=== PATIENT | female | born 1990 | race Hispanic/Latino ===

== ENCOUNTER 2025-01-06 22:13 | Observation (INO) ==
--- NOTE | 2025-01-06 22:22 | Emergency Department Note ---
HPI - Abdominal Pain General Chief Complaint: Abdominal Pain Stated Complaint: ABDOMINAL PAIN Time Seen by Provider: 01/06/25 22:21 Source: patient Mode of arrival: walk-in Limitations: no limitations History of Present Illness HPI narrative: 34-year-old female presents to ER with complaint of right upper quadrant abdominal pain x 2 days, patient reports that she was [facility] yesterday and diagnosed with pyelonephritis and placed on Levaquin at that time. Patient reports that she does not believe she has Edli that there is no reason for it to make her hurt in her upper abdomen and wants to be reassessed. MD elicited complaint: abdominal pain Pertinent past history: gastritis and past UTI Onset (ago): day(s) (2) Pain Consistency: constant Location: RUQ Severity: moderate Quality: stabbing, aching and sharp Radiation: R flank and back Migration to: no migration Exacerbating factors: eating, movement and other (Palpation) Relieving factors: nothing Context: other (Recent illness) Associated symptoms: nausea, vomiting, chills and other (Pain) Treatments prior to arrival: other (Antibiotics) Related Data Patient : No Patient lactating: No Previous Rx's Medication Instructions Recorded fluconazole 200 mg tablet 200 mg PO ONCE yeast #1 tab 07/20/24 (Diflucan) phenazopyridine 200 mg tablet 200 mg PO TID PRN pain 6 doses #18 07/20/24 (Pyridium) tabs Allergies Allergy/AdvReac Type Severity Reaction Status Date / Time No Known Drug Allergies Allergy Verified 01/06/25 23:10 Review of Systems 2 Status of ROS 10 or more systems reviewed and unremark able except as noted in history and below Constitutional Reports: chills; Denies: fever, change in weight, fatigue, malaise, night sweats, change in sleep pattern or other Eyes Denies: change in vision, blurry vision, blind spots, light sensitivity, eye discomfort, eye discharge, dry eyes, increased production of tears, floaters, seeing flashes or decreased night vision Ears, nose, mouth, and throat Denies: throat pain, neck pain, throat swelling, difficulty swallowing, hoarseness, mouth pain, swelling of lips/tongue, dry mouth, bad breath, ear pain, ear discharge, change in hearing, tinnitus, vertigo, nasal discharge, nasal congestion, nose bleeds or post nasal drip Cardiovascular Denies: chest pain, palpitations, edema, swelling of feet/ankles, lightheadedness, shortness of breath with exertion, shortness of breath when lying down, leg pain with exertion or bluish discoloration of hands/feet Respiratory Denies: shortness of breath, cough, wheezing, stridor, pain on inspiration, change in phlegm color, coughing up blood or chest congestion Gastrointestinal Reports: abdominal pain, nausea, vomiting and heartburn; Denies: coffee grounds in vomit, diarrhea, constipation, bloating, belching, excessive passing of gas, difficulty swallowing, feeling full early, change in bowel habits, painful bowel movements, rectal pain, rectal swelling, rectal itching, change in stool character, blood in stool, mucus in stool, white/light colored stool or fatty stool Genitourinary Denies: painful urination, urinary frequency, urinary urgency, urinary incontinence, blood in urine, difficulty voiding, decreased urine ouput, pelvic pain, painful menstruation, vaginal bleeding, vaginal discharge, irregular period, change in menstrual flow, absence of menstruation, genital lesion, genital itching, vaginal dryness, vaginal odor, pain during intercourse, difficulty conceiving or change in libido Musculoskeletal Reports: back pain; Denies: neck pain, extremity pain, extremity swelling, joint pain, limited range of motion, joint swelling, muscle cramps, muscle weakness or loss of height Integumentary/Breast Denies: rash, itching, redness, skin pain, skin tenderness, skin swelling, sores, new lesion, changing lesion, non-healing lesion, changes in skin color, jaundice, stretch duval, acne, nail changes, change in hair, breast pain, breast swelling, nipple discharge, breast mass, breast skin changes or change in breast shape Neurological Denies: headache, numbness in extremities, weakness in extremities, lack of coordination, dizziness, vertigo, confusion, behavioral changes, slurred speech, difficulty communicating thoughts, seizure-like activity or involuntary movements Psychiatric Reports: anxiety; Denies: mood swings, panic attacks, change in sleep pattern, hopelessness, loss of interest, irritability, paranoia, memory loss, difficulty concentrating, visual hallucinations, auditory hallucinations, tactile hallucinations, suicidal ideation or homicidal ideation Endocrine Denies: excessive urination, excessive thirst, fatigue, cold intolerance, excessive sweating, flushing, heat intolerance, deepening of the voice, change in body appearance or change in libido Hematologic/Lymphatic Denies: easy bruising, easy bleeding or enlarged lymph nodes Allergic/Immunologic Denies: hives, throat swelling, tongue swelling, facial swelling, wheezing, itchy eyes, seasonal allergies or food intolerance [facility] Medical History (Updated 07/20/24 @ 14:38 by René Armijo NP) HTN (hypertension) Surgical History (Updated 07/20/24 @ 12:53 by Cheri Salas RN) No pertinent past surgical history Social History Smoking status: never smoker Feel stressed/tense/nervous/anxious/difficulty sleeping: to some extent Life stressors: other (none) Life stressor details: Current medical condition Due to disability, difficulty making decisions: No Exam 2 Constitutional: normal general appearance, distress noted (moderate), abnormal body habitus (obese), no limitations and alert Vital Signs - 24 hr 01/06/25 22:30 Temperature 98.9 F Pulse Rate 70 Respiratory Rate 20 Blood Pressure 162/78 Pulse Oximetry 99 Oxygen Delivery Me thod Room Air HENMT: normocephalic, head/scalp atraumatic, hearing grossly normal bilaterally, external ears normal, EACs normal, nasal mucous membranes normal, external nose normal, oral mucous membranes normal, oropharynx normal, dentition normal and gingiva normal Eyes: PERRL, EOMs intact bilaterally, conjunctivae normal, no scleral icterus, no papilledema, normal visual zapien by confrontation, alignment normal, periorbital findings normal and no nystagmus Neck/C-Spine: visual inspection normal, trachea midline, cervical spine nontender, cervical full ROM noted and supple Lymph: no lymphadenopathy noted and no lymphedema noted Chest: inspection of chest normal, palpation of chest normal, inspection of breast(s) abnormal (deferred) and palpation of breast(s) abnormal (deferred) Respiratory: breath sounds equal bilaterally, normal respiratory effort, clear to auscultation bilaterally, no wheezes, no rales, no retractions and no use of accessory muscles Cardiovascular: normal heart rate noted, regular rhythm noted, no gallop, no rub, no murmur, no JVD, no clicks, peripheral pulses 2+ throughout and no additional abnormal heart sounds Gastrointestinal: abdomen normal to inspection, abdomen soft to palpation, tender to palpation (moderate) and (RUQ), nondistended, normoactive bowel sounds, no hepatosplenomegaly, no masses, no pulsatile mass, no ascites, no hernia and rectal exam abnormal (deferred) Patient has increased abdominal pain on palpation of the right upper quadrant and reports that the pain radiates into her back between her shoulder blades and into her right flank. 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, no movement abnormality noted, no focal motor deficit noted, no sensory deficits noted, gait normal, speech normal, coordination normal, no pronator drift noted, no fasciculations noted and GCS normal Psychiatry: Mental Status Exam documented within this Exam's Psych section mental status grossly normal, oriented x3, thought process normal, cooperative, affect normal, psychomotor activity normal and memory normal Feel stressed/tense/nervous/anxious/difficulty sleeping: to some extent Life stressors: other (none) Life stressor details: Current medical condition Due to disability, difficulty making decisions: No Skin: skin color normal, no rash, no lesions, no ecchymosis noted, no wounds, no lacerations, skin turgor normal, no jaundice, no petechiae, no mottling, nails normal and no alopecia Image: Body (4 view): 1. Pain on palpation and with movement. Course Course Hospital Course: 34-year-old female that presented to ER with complaint of right upper quadrant abdominal pain x 2 days and requesting reevaluation after being diagnosed with pyelonephritis yesterday at [facility] has been evaluated by physical exam, CBC, CMP, lipase, urinalysis, urinary , and CT of the abdomen and pelvis with contrast with results as noted in charting. Patient has been found to have cholelithiasis without cholecystitis, a large calcified gallstone, hypoalbuminemia, intractable pain, nausea and vomiting, and Mild hyponatremia. Patient will be admitted [facility] floor under observation status for pain control, nausea vomiting control, hydration, and antibiotics with potential gallbladder ultrasound in the morning and transfer for surgery if needed. Vital Signs Vital signs: Vital Signs Temperature 98.9 F 01/06/25 22:30 Pulse Rate 70 01/06/25 22:30 Respiratory Rate 20 01/06/25 22:30 Blood Pressure 162/78 01/06/25 22:30 Pulse Oximetry 99 01/06/25 22:30 Oxygen Delivery Method Room Air 01/06/25 22:30 Temperature 98.9 F 01/06/25 22:30 Pulse Rate 70 01/06/25 22:30 Respiratory Rate 20 01/06/25 22:30 Blood Pressure 162/78 01/06/25 22:30 Pulse Oximetry 99 01/06/25 22:30 Oxygen Delivery Method Room Air 01/06/25 22:30 MDM - Abdominal Pain MDM Narrative Medical decision making narrative: Medical Decision Making this patient involved physical exam, CBC, CMP, lipase, urinalysis, urine , and CT of the abdomen pelvis with contrast. Differential Diagnosis Differential diagnosis: Likely abdominal pain, acute appendicitis, constipation, diverticulitis, gastroenteritis, small bowel obstruction and other (Cholelithiasis) Medical Records Attestation: I reviewed the patient's medical records. Medical records narrative: Patient discharged from [facility] on yesterday with diagnosis of pyelonephritis with prescription for Levaquin. Lab Data Attestation: I reviewed the patient's lab results. Labs: Lab Results 01/06/25 01/06/25 Range/Units 23:02 23:20 WBC 9.7 H (4.3-9.3) K/uL RBC 4.4 (4.00-5.50) M/uL Hgb 13.1 (12.5-15.8) gm/dL Hct 38.5 (35.9-46.7) % MCV 88.4 (81.0-93.7) fl MCH 30.1 (27.6-32.2) pg MCHC 34.0 (33.1-35.3) g/dl RDW 13.9 (11.4-14.2) % Plt Count 265 (152-353) K/uL MPV 8.3 (6.9-10.8) fl Gran % 63.9 (47.8-71.3) % Lymph % (Auto) 25.2 (20.0-43.0) % Foster % (Auto) 7.6 (3.6-9.8) % Eos % (Auto) 2.7 (0.4-2.8) % Baso % (Auto) 0.6 (0.1-0.85) Lymph # (Auto) 2.5 (1.1-3.1) Foster # (Auto) 0.7 L (1.1-3.1) Eos # (Auto) 0.3 H (0.0-0.2) Baso # (Auto) 0.1 (0.0-0.1) Absolute Gran (auto) 6.2 H (2.3-6.0) Sodium 135 L (136-145) mmol/L Potassium 3.6 (3.6-5.2) mmol/L Chloride 103.0 (98-107) mmol/L Carbon Dioxide 29 (21-32) mmol/L Anion Gap 3.0 L (4-14) mEq/L BUN 18 (7-18) mg/dL Creatinine 0.9 (0.6-1.3) mg/dL Estimated GFR 85.0 (>59.9) Glucose 110 (70-110) mg/dL Calcium 8.0 L (8.5-10.1) mg/dL Total Bilirubin 0.31 (0.0-1.0) mg/dL AST 13 L (15-37) U/L ALT 23 L (30-65) U/L Alkaline Phosphatase 72 (50-136) U/L Total Protein 7.1 (6.4-8.2) g/dL Albumin 3.1 L (3.4-5.0) g/dL Lipase 64.0 (16.0-77.0) U/L Urine Color Yellow (STRAW/YELL.) Urine Appearance Clear (CLEAR) Ur Specific [place] 1.020 (1.001-1.035) Urine Protein 2+ (NEGATIVE) Urine Glucose (UA) Normal (NORMAL) Urine Ketones Negative (NEGATIVE) Urine Occult Blood Negative (NEG - TRACE) Urine Nitrite Negative (NEGATIVE) Urine Bilirubin Negative (NEGATIVE) Urine Urobilinogen Normal (NORMAL) Ur Leukocyte Esterase Negative (NEGATIVE) Urine Test Negative (Negative) Fluid pH 7.0 (5 - 9) Imaging Data Imaging ordered: CT scan - abdomen Attestation: I have reviewed the pertinent imaging results. Radiologist's impression: EXAM: CT ABDOMEN AND PELVIS WITH CONTRAST HISTORY: Right upper quadrant abdominal painRight upper quadrant abdominal pain; pt started having pain in her ruq that radiates to her back hx: htn. no sx 300 isovue, 100 ml COMPARISON: None. TECHNIQUE: Axial CT images were obtained through the abdomen and pelvis after the intravenous administration of contrast. Coronal reformatted images were included. Informed written consent was obtained prior to contrast administration. All CT scans at this facility use dose modulation, iterative reconstruction, and/or weight based dosing when appropriate to reduce radiation dose to as low as reasonably achievable. FINDINGS: LOWER THORAX: Within normal limits. ABDOMEN: LIVER: Hepatic steatosis GALLBLADDER: Large calcified gallstone SPLEEN: Within normal limits. PANCREAS: Within normal limits. KIDNEYS: Within normal limits. ADRENAL GLANDS: Within normal limits. GI TRACT: Course and caliber are within normal limits. Appendix normal. LYMPH NODES: No abnormally enlarged nodes. VESSELS: Within normal limits. PERITONEUM / RETROPERITONEUM: No free gas. PELVIS: BLADDER: Within normal limits. GENITALS: IUD in the uterus. BONES: Within normal limits. IMPRESSION: 1. Cholelithiasis with large calcified gallstone. Correlate with ultrasound. 2. Hepatic steatosis. 3. Appendix normal. THIS IS AN ELECTRONICALLY VERIFIED FINAL REPORT 01/07/2025 12:44 AM - Electronically signed by Aidee Marques MD Discharge Plan Discharge Patient Disposition: Admitted As Observation Condition: Stable Chief Complaint: Abdominal Pain Clinical Impression: Cholelithiasis, Abdominal pain, Intractable abdominal pain, Intractable nausea and vomiting, Hyponatremia, Hypoalbuminemia Prescriptions: No Action fluconazole [Diflucan] 200 mg tablet 200 mg PO ONCE Qty: 1 0RF Rx Instructions: take at the end of your antibiotic regimen phenazopyridine [Pyridium] 200 mg tablet 200 mg PO TID PRN (Reason: pain) Qty: 18 0RF Print Language: Portuguese Referrals: Miranda Modi [Primary Care Provider] - Time of Disposition: 01:00
[2025-01-06 23:08] LABS: Urine Appearance CLEAR (CLEAR); Urine Blood NEGATIVE (NEG - TRACE); Urine Color YELLOW (STRAW/YELL.); Urine Urobilinogen Normal (NORMAL)
[2025-01-06 23:25] LABS: Basophils #(Absolute) Auto 0.1 (0.0-0.1); Basophils%(Percent) Auto 0.6 (0.1-0.85); Eosinophils#(Absolute)Auto 0.3 (0.0-0.2); Eosinophils%(Percent) Auto 2.7 % (0.4-2.8); Granulocytes % - Auto 63.9 % (47.8-71.3); Granulocytes#(Absolute)- Auto 6.2 (2.3-6.0); Hematocrit 38.5 % (35.9-46.7); Mean Corpuscular Volume 88.4 fl (81.0-93.7); Monocytes #(Absolute)- Auto 0.7 (1.1-3.1); Monocytes %(Percent)- Auto 7.6 % (3.6-9.8); Platelet Count 265 K/uL (152-353); White Blood Count 9.7 K/uL (4.3-9.3)
[2025-01-06 23:46] LABS: Potassium 3.6 mmol/L (3.6-5.2)
[2025-01-07] MEDS ORDERED: KETOROLAC 30 MG/ML INJ VIAL ONE (00:13)
[2025-01-07] MEDS ORDERED: ONDANSETRON HCL/PF 4 MG/2 ML VIAL ONE (00:13)
[2025-01-07] MEDS: ONDANSETRON HCL/PF 4 MG/2 ML VIAL IVP ONE (00:15)
[2025-01-07] MEDS: KETOROLAC 30 MG/ML INJ VIAL IVP ONE (00:16)
[2025-01-07] MEDS ORDERED: bisacodyL 10 MG SUPP.RECT PR PRN (01:33)
[2025-01-07] MEDS ORDERED: ONDANSETRON HCL/PF 4 MG/2 ML VIAL IVP PRN (01:33)
[2025-01-07] MEDS ORDERED: ACETAMINOPHEN 1000 MG/100 ML 1,000 MG/100 ML IV.SOLN IV PRN (01:33)
[2025-01-07] MEDS ORDERED: KETOROLAC 30 MG/ML INJ VIAL IVP PRN (01:33)
[2025-01-07] MEDS ORDERED: MORPHINE SULFATE 4 MG/ML CARTRIDGE IV PRN (01:33)
[2025-01-07] MEDS: 0.9 % SODIUM CHLORIDE 1000 ML 1,000 ML IV SCH (03:00)
[2025-01-07] MEDS: CIPROFLOXACIN 400 MG/200ML-D5W 400 MG/200 ML PIGGYBACK IV SCH (03:00)
[2025-01-07] MEDS: METRONIDAZOLE 500 MG/100ML-NS 500 MG/100 ML PIGGYBACK IV SCH (03:11)
[2025-01-07] MEDS: PANTOPRAZOLE SODIUM 40 MG VIAL IVP SCH (08:59)
[2025-01-07] MEDS: ENOXAPARIN SODIUM 40 MG/0.4 ML SYRINGE SUBQ SCH (09:00)
--- NOTE | 2025-01-07 13:20 | History & Physical Report ---
H&P: HPI History of Present Illness Chief complaint: CHOLELITHIASIS,INTRACTABLE PAIN,INTRACTABLE NAUSEA Narrative: 34-year-old female presents to ER with complaint of right upper quadrant abdominal pain x 2 days and was just right shoulder blade, patient reports that she was [facility] yesterday and diagnosed with pyelonephritis and placed on Levaquin at that time. Patient reports that she does not believe she has UTI that there is no reason for it to make her hurt in her upper abdomen and wants to be reassessed. Admitted patient to med/surg for observation and treatment secondary to cholelithiasis and intractable pain. Nausea and vomiting improved. Patient tolerated medications on the floor and pain down from the 8 in the ER to a 3-4 this am and she has not eaten anything at this time but thinks she may want to ty liquids soon Review of Systems Status of ROS 10 or more systems reviewed and unremark able except as noted in history and below Constitutional Reports: chills; Denies: fever, change in weight, fatigue, malaise, night sweats, change in sleep pattern or other Eyes Denies: change in vision, blurry vision, blind spots, light sensitivity, eye discomfort, eye discharge, dry eyes, increased production of tears, floaters, seeing flashes or decreased night vision Ears, nose, mouth, and throat Denies: throat pain, neck pain, throat swelling, difficulty swallowing, hoarseness, mouth pain, swelling of lips/tongue, dry mouth, bad breath, ear pain, ear discharge, change in hearing, tinnitus, vertigo, nasal discharge, nasal congestion, nose bleeds or post nasal drip Cardiovascular Denies: chest pain, palpitations, edema, swelling of feet/ankles, lightheadedness, shortness of breath with exertion, shortness of breath when lying down, leg pain with exertion or bluish discoloration of hands/feet Respiratory Denies: shortness of breath, cough, wheezing, stridor, pain on inspiration, change in phlegm color, coughing up blood or chest congestion Gastrointestinal Reports: abdominal pain, nausea, vomiting and heartburn; D enies: coffee grounds in vomit, diarrhea, constipation, bloating, belching, excessive passing of gas, difficulty swallowing, feeling full early, change in bowel habits, painful bowel movements, rectal pain, rectal swelling, rectal itching, change in stool character, blood in stool, mucus in stool, white/light colored stool or fatty stool Genitourinary Denies: painful urination, urinary frequency, urinary urgency, urinary incontinence, blood in urine, difficulty voiding, decreased urine ouput, pelvic pain, painful menstruation, vaginal bleeding, vaginal discharge, i rregular period, change in menstrual flow, absence of menstruation, genital lesion, genital itching, vaginal dryness, vaginal odor, pain during intercourse, difficulty conceiving or change in libido Musculoskeletal Reports: back pain (was below right shouldnow for last day going around to right upper quadrant); Denies: neck pain, extremity pain, extremity swelling, joint pain, limited range of motion, joint swelling, muscle cramps, muscle weakness or loss of height Integumentary/Breast Denies: rash, itching, redness, skin pain, skin ten derness, skin swelling, sores, new lesion, changing lesion, non-healing lesion, changes in skin color, jaundice, stretch duval, acne, nail changes, change in hair, breast pain, breast swelling, nipple discharge, breast mass, breast skin changes or change in breast shape Neurological Denies: headache, numbness in extremities, weakness in extremities, lack of coordination, dizziness, vertigo, confusion, behavioral changes, slurred speech, difficulty communicating thoughts, seizure-like activity or involuntary movements Psychiatric Reports: anxiety; Denies: mood swings, panic attacks, change in sleep pattern, hopelessness, loss of interest, irritability, paranoia, memory loss, difficulty concentrating, visual hallucinations, auditory hallucinations, tactile hallucinations, suicidal ideation or homicidal ideation Endocrine Denies: excessive urination, excessive thirst, fatigue, cold intolerance, excessive sweating, flushing, heat intolerance, deepening of the voice, change in body appearance or change in libido Hematologic/Lymphatic Denies: easy bruising, easy bleeding or enlarged lymph nodes Allergic/Immunologic Denies: hives, throat swelling, tongue swelling, facial swelling, wheezing, itchy eyes, seasonal allergies or food intolerance [facility] Medical History (Updated 01/07/25 @ 16:21 by Lesvia Fitch DO) Anxiety Heartburn HTN (hypertension) Surgical History No pertinent past surgical history Social History Smoking status: never smoker Within the past year, how often did you have a drink containing alcohol: monthly or less Within the past year, how often did you have six or more drinks on one occasion: never Non-prescribed substance use: denies use Problems where you live: no known problems Highest level of school completed/degree received: [employer] Feel stressed/tense/nervous/anxious/difficulty sleeping: to some extent Life stressors: other (none) Life stressor details: Current medical condition Due to disability, difficulty making decisions: No Meds Home Medications and Allergies Home Medications Medication Instructions Recorded Confirmed Type lisinopril 20 mg tablet 20 mg PO DAILY 01/07/25 01/07/25 History Allergies Allergy/AdvReac Type Severity Reaction Status Date / Time No Known Drug Allergies Allergy Verified 01/06/25 23:10 Exam Exam: Patient in low dawkins's position upon entering room for exam. Constitutional: abnormal general appearance (disheveled), no apparent distress, abnormal body habitus (obese), no limitations and alert Vital Signs - 24 hr 01/06/25 22:30 01/06/25 22:30 01/06/25 23:00 Temperature 98.9 F Pulse Rate 70 69 Pulse Rate [Bilate ral] Respiratory Rate 20 20 Blood Pressure 162/78 145/84 Blood Pressure [Ri ght Arm] Pulse [facility]ximetry 99 99 [facility] 01/06/25 23:30 01/07/25 00:00 01/07/25 00:30 Temperature Pulse Rate 70 67 67 Pulse Rate [Bilate ral] Respiratory Rate 18 17 19 Blood Pressure 162/73 112/61 104/51 Blood Pressure [Ri ght Arm] Pulse Oximetry 98 97 98 [facility] Room Air 01/07/25 01:30 01/07/25 02:05 01/07/25 02:30 Temperature Pulse Rate 63 61 Pulse Rate [Bilate ral] Respiratory Rate 16 16 Blood Pressure 117/53 109/57 Blood Pressure [Ri ght Arm] Pulse Oximetry 97 97 [facility] Room Air 01/07/25 03:00 01/07/25 03:00 01/07/25 03:31 Temperature 98.9 F 97.8 F Pulse Rate 68 68 Pulse Rate [Bilate ral] 88 Respiratory Rate 17 17 19 Blood Pressure 105/57 105/57 Blood Pressure [Ri ght Arm] 134/58 Pulse Oximetry 97 97 100 Oxygen Delivery Me thod Room Air Room Air 01/07/25 08:00 Temperature 97.8 F Pulse Rate Pulse Rate [Bilate ral] 71 Respiratory Rate 20 Blood Pressure Blood Pressure [Ri ght Arm] 115/68 Pulse Oximetry 99 Oxygen Delivery Me thod Room Air HENMT: normocephalic, head/scalp atraumatic, hearing grossly normal bilaterally, external ears normal, EACs normal, nasal mucous membranes normal, external nose normal, oral mucous membranes normal, oropharynx normal, dentition normal and gingiva normal Eyes: PERRL, EOMs intact bilaterally, conjunctivae normal, no scleral icterus, no papilledema, normal visual zapien by confrontation, alignment normal, periorbital findings normal and no nystagmus Neck/C-Spine: visual inspection normal, trachea midline, cervical spine nontender, cervical full ROM noted and supple Lymph: no lymphadenopathy noted and no lymphedema noted Chest: inspection of chest normal, palpation of chest normal, inspection of breast(s) abnormal (deferred) and palpation of breast(s) abnormal (deferred) Respiratory: breath sounds equal bilaterally, normal respiratory effort, clear to auscultation bilaterally, no wheezes, no rales, no retractions and no use of accessory muscles Cardiovascular: normal heart rate noted, regular rhythm noted, no gallop, no rub, no murmur, no JVD, no clicks, peripheral pulses 2+ throughout and no additional abnormal heart sounds Gastrointestinal: abdomen abnormal to inspection (obese), abdomen soft to palpation, tender to palpation (guarding without rebound) (moderate), (RLQ) and (RUQ), nondistended, normoactive bowel sounds, no hepatosplenomegaly, no masses, no pulsatile mass, no ascites, no hernia and rectal exam abnormal (deferred) Patient has increased abdominal pain on palpation of the right upper/lower quadrant and reports that the pain radiates into her back between her shoulder blades and into her right flank. Genitourinary: no CVA tenderness, bladder normal to palpation, vaginal abnormality noted (deferred) and cervical abnormality noted (deferred) Back/Pelvis: spine normal to inspection, no thoracic spine tenderness, no lumbar spine tenderness, thoracic spine ROM normal, lumbar spine ROM normal and no paraspinal muscle tenderness noted Extremities: normal to inspection, normal to palpation, no tenderness, full ROM, no joint enlargement and no deformity Neurology: stumper feller II-XII intact, no movement abnormality noted, no focal motor deficit noted, no sensory deficits noted, gait normal, speech normal, coordination normal, no pronator drift noted, no fasciculations noted and GCS normal Psychiatry: Mental Status Exam documented within this Exam's Psych section mental status grossly normal, oriented x3, thought process normal, cooperative, affect normal, psychomotor activity normal and memory normal Feel stressed/tense/nervous/anxious/difficulty sleeping: to some extent Life stressors: other Life stressor details: health issues Skin: skin color abnormal Reports (pale), no rash, no lesions, no ecchymosis noted, no wounds, no lacerations, skin turgor abnormal Reports (tenting), no jaundice, no petechiae, no mottling, nails normal and no alopecia Assessment and Plan Assessment and Plan (1) Cholelithiasis: Qualifiers: Biliary obstruction: without biliary obstruction Cholecystitis acuity: acute Cholecystitis presence: with cholecystitis Cholelithiasis location: gallbladder Qualified Code(s): K80.00 - Calculus of gallbladder with acute cholecystitis without obstruction Code(s): K80.20 - Calculus of gallbladder without cholecystitis without obstruction (2) Intractable nausea and vomiting: Code(s): R11.2 - Nausea with vomiting, unspecified (3) Abdominal pain: Qualifiers: Abdominal location: right upper quadrant Qualified Code(s): R10.11 - Right upper quadrant pain Code(s): R10.9 - Unspecified abdominal pain (4) Heartburn: Code(s): R12 - Heartburn (5) Anxiety: Code(s): F41.9 - Anxiety disorder, unspecified (6) Leukocytosis: Qualifiers: Leukocytosis type: monocytosis Qualified Code(s): D72.821 - Monocytosis (symptomatic) Code(s): D72.829 - Elevated white blood cell count, unspecified (7) Hyponatremia: Code(s): E87.1 - Hypo-osmolality and hyponatremia (8) Hypocalcemia: Code(s): E83.51 - Hypocalcemia (9) Hypoalbuminemia: Code(s): E88.09 - Other disorders of plasma-protein metabolism, not elsewhere classified Plan Sodium Chloride 1,000 mls @ 100 mls/hr IV CONT start liquids once patient pain under better control Enoxaparin Sodium 40 mg SUBQ DAILY Pantoprazole Sodium 40 mg IVP DAILY Ciprofloxacin/Dextrose 400 mg IN 200 MLS @ 200 MLS/HR iv q12h flagyl 500 MG in 100 mls/hr IV Q8H Bisacodyl 10 mg [place] DAILY PRN Ketorolac Tromethamine 15 mg IVP Q6H PRN Morphine Sulfate 4 mg IV Q6H PRN Ondansetron Hcl 4 mg IVP Q6H PRN Acetaminophen 1,000 mg in 100 mls @ 400 mls/hr IV Q6H PRN Results Labs Labs: CBC 01/06/25 Range/Units 23:20 WBC 9.7 H (4.3-9.3) K/uL RBC 4.4 (4.00-5.50) M/uL Hgb 13.1 (12.5-15.8) gm/dL Hct 38.5 (35.9-46.7) % Plt Count 265 (152-353) K/uL Gran % 63.9 (47.8-71.3) % Lymph % (Auto) 25.2 (20.0-43.0) % [place] % (Auto) 7.6 (3.6-9.8) % Eos % (Auto) 2.7 (0.4-2.8) % Baso % (Auto) 0.6 (0.1-0.85) Lymph # (Auto) 2.5 (1.1-3.1) [place] # (Auto) 0.7 L (1.1-3.1) Eos # (Auto) 0.3 H (0.0-0.2) Baso # (Auto) 0.1 (0.0-0.1) Absolute Gran (auto) 6.2 H (2.3-6.0) CMP 01/06/25 23:20 Sodium 135 L Potassium 3.6 Chloride 103.0 Carbon Dioxide 29 BUN 18 Creatinine 0.9 Glucose 110 Calcium 8.0 L Liver Function 01/06/25 Range/Units 23:20 Total Bilirubin 0.31 (0.0-1.0) mg/dL AST 13 L (15-37) U/L ALT 23 L (30-65) U/L Alkaline Phosphatase 72 (50-136) U/L Albumin 3.1 L (3.4-5.0) g/dL Urine 01/06/25 23:02 Urine Color Yellow Urine Appearance Clear Ur Specific [place] 1.020 Urine Protein 2+ Urine Glucose (UA) Normal Imaging Imaging ordered: CT scan - abdomen Radiologist's impression: CT ABDOMEN AND PELVIS WITH CONTRAST Date of Service: 01/06/25 HISTORY: Right upper quadrant abdominal painRight upper quadrant abdominal pain; pt started having pain in her ruq that radiates to her back hx: htn. no sx 300 isovue, 100 ml COMPARISON: None. TECHNIQUE: Axial CT images were obtained through the abdomen and pelvis after the intravenous administration of contrast. Coronal reformatted images were included. Informed written consent was obtained prior to contrast administration. All CT scans at this facility use dose modulation, iterative reconstruction, and/or weight based dosing when appropriate to reduce radiation dose to as low as reasonably achievable. FINDINGS: LOWER THORAX: Within normal limits. ABDOMEN: LIVER: Hepatic steatosis GALLBLADDER: Large calcified gallstone SPLEEN: Within normal limits. PANCREAS: Within normal limits. KIDNEYS: Within normal limits. ADRENAL GLANDS: Within normal limits. GI TRACT: Course and caliber are within normal limits. Appendix normal. LYMPH NODES: No abnormally enlarged nodes. VESSELS: Within normal limits. PERITONEUM / RETROPERITONEUM: No free gas. PELVIS: BLADDER: Within normal limits. GENITALS: IUD in the uterus. BONES: Within normal limits. IMPRESSION: 1. Cholelithiasis with large calcified gallstone. Correlate with ultrasound. 2. Hepatic steatosis. 3. Appendix normal.
[2025-01-08 07:06] LABS: Basophils%(Percent) Auto 0.8 (0.1-0.85); Eosinophils#(Absolute)Auto 0.2 (0.0-0.2); Eosinophils%(Percent) Auto 2.7 % (0.4-2.8); Granulocytes % - Auto 48.8 % (47.8-71.3); Granulocytes#(Absolute)- Auto 2.8 (2.3-6.0); Hematocrit 37.6 % (35.9-46.7); Monocytes #(Absolute)- Auto 0.4 (1.1-3.1); Monocytes %(Percent)- Auto 7.5 % (3.6-9.8); Platelet Count 247 K/uL (152-353); White Blood Count 5.7 K/uL (4.3-9.3)
[2025-01-08 08:17] VITALS: BP 120/66; PULSE 58; RESP 19; TEMP 97.5
--- NOTE | 2025-01-08 10:58 | Discharge Summary ---
DS: Providers Provider Date of admission: 01/07/25 01:33 Primary care physician: Miranda Modi Admitting clinician: René Armijo Attending physician on admission: Lesvia Fitch Attending physician on discharge: Lesvia Fitch Discharging clinician: Lesvia Fitch Anticipated date of discharge: 01/08/25 DS: Diagnosis Discharge Diagnosis (1) Cholelithiasis: Qualifiers: Biliary obstruction: without biliary obstruction Cholecystitis acuity: acute Cholecystitis presence: with cholecystitis Cholelithiasis location: gallbladder Qualified Code(s): K80.00 - Calculus of gallbladder with acute cholecystitis without obstruction (2) Intractable nausea and vomiting: (3) Abdominal pain: Qualifiers: Abdominal location: right upper quadrant Qualified Code(s): R10.11 - Right upper quadrant pain (4) Heartburn: (5) Anxiety: (6) Leukocytosis: Qualifiers: Leukocytosis type: monocytosis Qualified Code(s): D72.821 - Monocytosis (symptomatic) (7) Hyponatremia: (8) Hypocalcemia: (9) Hypoalbuminemia: Plan Bisacodyl 10 mg [place] DAILY PRN Sodium Chloride 1,000 mls @ 100 mls/hr IV CONT Enoxaparin Sodium 40 mg SUBQ DAILY Ketorolac Tromethamine 15 mg IVP Q6H PRN Morphine Sulfate Hcl 4 mg IV Q6H PRN Ondansetron Hcl 4 mg IVP Q6H PRN Pantoprazole Sodium 40 mg IVP DAILY Acetaminophen 1,000 mg in 100 mls @ 400 mls/hr IV Q6H PRN Ciprofloxacin/Dextrose 400 mg in 200 mls @ 200 mls/hr IV Q12H Metronidazole 500 mg IN 100 MLS @ 100 mls/hr IV Q8H Discharge home for self care. DS: Summary Hospital Course Hospital Course: 34-year-old female that presented to ER with complaint of right upper quadrant abdominal pain x 2 days and requesting reevaluation after being diagnosed with pyelonephritis yesterday at [facility] has been evaluated by physical exam, CBC, CMP, lipase, urinalysis, urinary , and CT of the abdomen and pelvis with contrast with results as noted in charting. Patient has been found to have cholelithiasis without cholecystitis, a large calcified gallstone, hypoalbuminemia, intractable pain, nausea and vomiting, and Mild hyponatremia. Patient will be admitted to the [facility] floor under observation status for pain control, nausea vomiting control, hydration, and antibiotics with potential gallbladder ultrasound in the morning. Admitted patient to med/surg for observation and treatment secondary to cholelithiasis and intractable pain. Nausea and vomiting improved. Patient tolerated medications on the floor and pain down from the 8 in the ER to a 3-4 this am and she has not eaten anything at this time but thinks she may want to try liquids soon. Liquid diet was tolerated well. Patient had an uneventful night, no pain, nausea, or vomiting since admission to the floor. Patient diet will continue to advance as tolerated. She was educated on diet and fluids. Patient is ready for discharge home with self care. Case management provided information for a local surgeon upon patient's request. Follow up with PCP in 5-7 days of discharge. Return to ER if symptoms worsen. Status at Discharge Overall status at discharge: patient is back to baseline Time Spent with Patient Time attestation: Total time spent providing and/or coordinating discharge services: Exam Exam: Patient sitting up in recliner upon entering room for exam. Family in room with patient. Constitutional: normal general appearance, no apparent distress, abnormal body habitus (obese), no limitations and alert Vital Signs - 24 hr 01/07/25 12:00 01/07/25 16:00 01/07/25 19:54 Temperature 97.6 F 98.2 F 98.6 F Pulse Rate [Bilate ral] 65 65 55 L Respiratory Rate 19 19 17 Blood Pressure [Ri ght Arm] 145/81 123/66 115/64 Pulse Oximetry 99 99 Oxygen Delivery Me thod Room Air Room Air Room Air 01/07/25 23:46 01/08/25 03:47 01/08/25 08:00 Temperature 97.8 F 98.3 F 97.5 F L Pulse Rate [Bilate ral] 79 74 58 L Respiratory Rate 19 16 19 Blood Pressure [Ri ght Arm] 100/56 109/62 120/66 Pulse Oximetry 97 98 98 Oxygen Delivery Tx thod Room Air Room Air Room Air HENMT: normocephalic, head/scalp atraumatic, hearing grossly normal bilaterally, external ears normal, EACs normal, nasal mucous membranes normal, external nose normal, oral mucous membranes normal, oropharynx normal, dentition normal and gingiva normal Eyes: PERRL, EOMs intact bilaterally, conjunctivae normal, no scleral icterus, no papilledema, normal visual zapien by confrontation, alignment normal, periorbital findings normal and no nystagmus Neck/C-Spine: visual inspection normal, trachea midline, cervical spine nontender, cervical full ROM noted and supple Lymph: no lymphadenopathy noted and no lymphedema noted Chest: inspection of chest normal and palpation of chest normal Respiratory: breath sounds equal bilaterally, normal respiratory effort, clear to auscultation bilaterally, no wheezes, no rales, no retractions and no use of accessory muscles Cardiovascular: normal heart rate noted, regular rhythm noted, no gallop, no rub, no murmur, no JVD, no clicks, peripheral pulses 2+ throughout and no additional abnormal heart sounds Gastrointestinal: abdomen abnormal to inspection (obese), abdomen soft to palpation, nontender to palpation, nondistended, normoactive bowel sounds and no hepatosplenomegaly Genitourinary: no CVA tenderness and bladder normal to palpation Back/Pelvis: spine normal to inspection, no thoracic spine tenderness, no lumbar spine tenderness, thoracic spine ROM normal, lumbar spine ROM normal and no paraspinal muscle tenderness noted Extremities: normal to inspection, normal to palpation, no tenderness, full ROM, no joint enlargement and no deformity Neurology: traveling operator II-XII intact, no movement abnormality noted, no focal motor deficit noted, no sensory deficits noted, gait normal, speech normal, coordination normal, no pronator drift noted, no fasciculations noted and GCS normal Psychiatry: Mental Status Exam documented within this Exam's Psych section mental status grossly normal, oriented x3, thought process normal, cooperative, affect normal, psychomotor activity normal and memory normal Skin: skin color normal, no rash, no lesions, no ecchymosis noted, no wounds, no lacerations, skin turgor normal, no jaundice, no petechiae, no mottling, nails normal and no alopecia DS: Data Data Completed and Pending Labs on day of discharge: Labs from last 24 hours 01/08/25 06:48 WBC 5.7 RBC 4.2 Hgb 12.6 Hct 37.6 MCV 89.0 MCH 29.9 MCHC 33.5 RDW 13.9 Plt Count 247 MPV 8.4 Gran % 48.8 Lymph % (Auto) 40.2 Metcalfe % (Auto) 7.5 Eos % (Auto) 2.7 Baso % (Auto) 0.8 Lymph # (Auto) 2.3 Metcalfe # (Auto) 0.4 L Eos # (Auto) 0.2 Baso # (Auto) 0.0 Absolute Gran (auto) 2.8 Sodium 137 Potassium 4.0 Chloride 105.0 Carbon Dioxide 27 Anion Gap 5.0 BUN 11 Creatinine 0.7 Estimated GFR 114.9 Glucose 82 Calcium 7.5 L Phosphorus 2.8 Magnesium 1.8 Total Bilirubin 0.37 AST 16 ALT 24 L Alkaline Phosphatase 59 Total Protein 6.2 L Albumin 2.[address] scan - abdomen: Radiologist's impression: CT ABDOMEN AND PELVIS WITH CONTRAST Date of Service: 01/06/25 HISTORY: Right upper quadrant abdominal painRight upper quadrant abdominal pain; pt started having pain in her ruq that radiates to her back hx: htn. no sx 300 isovue, 100 ml COMPARISON: None. TECHNIQUE: Axial CT images were obtained through the abdomen and pelvis after the intravenous administration of contrast. Coronal reformatted images were included. Informed written consent was obtained prior to contrast administration. All CT scans at this facility use dose modulation, iterative reconstruction, and/or weight based dosing when appropriate to reduce radiation dose to as low as reasonably achievable. FINDINGS: LOWER THORAX: Within normal limits. ABDOMEN: LIVER: Hepatic steatosis GALLBLADDER: Large calcified gallstone SPLEEN: Within normal limits. PANCREAS: Within normal limits. KIDNEYS: Within normal limits. ADRENAL GLANDS: Within normal limits. GI TRACT: Course and caliber are within normal limits. Appendix normal. LYMPH NODES: No abnormally enlarged nodes. VESSELS: Within normal limits. PERITONEUM / RETROPERITONEUM: No free gas. PELVIS: BLADDER: Within normal limits. GENITALS: IUD in the uterus. BONES: Within normal limits. IMPRESSION: 1. Cholelithiasis with large calcified gallstone. Correlate with ultrasound. 2. Hepatic steatosis. 3. Appendix normal. Abdomen US: Radiologist's impression: US ABDOMEN COMPLETE Date of Service: 01/07/25 HISTORY: right sided pain cholelithiasis historyright sided pain cholelithiasis history; - COMPARISON: Abdominopelvic CT January 06, 2025 TECHNIQUE: 135 images made by the protection consultant. Nguyen scale and color-flow images of the abdomen were obtained. FINDINGS: The liver mildly enlarged with mild diffuse fatty infiltration. No mass or intrahepatic biliary duct dilatation is present. The intrahepatic inferior vena cava was imaged. The pancreatic head and body are unremarkable. The pancreatic tail is not well seen due to overlying bowel gas. The gallbladder is contracted with a few large gallstones and wall thickening. No extrahepatic biliary duct dilatation; common duct is normal. The right kidney is normal in size and echogenicity. The left kidney is normal in size and echogenicity. No hydronephrosis or solid mass. The spleen is normal in size and echogenicity. Aorta has a normal caliber with no abdominal aortic aneurysm. Aortic bifurcation not seen because of overlying bowel gas. No ascites. IMPRESSION: Mild hepatic steatosis. Cholelithiasis and chronic cholecystitis. Discharge Plan Discharge Disposition: Home, Self-Care Condition: Improved Discharge Medications: New ciprofloxacin HCl [Cipro] 500 mg tablet 500 mg PO Q12H Qty: 14 0RF metronidazole 500 mg tablet 500 mg PO Q8H Qty: 21 0RF Rx Instructions: no ETOH even once completed and take with food pantoprazole [Protonix] 40 mg tablet,delayed release (DR/EC) 40 mg PO DAILY Qty: 30 0RF ondansetron HCl 4 mg tablet 4 mg PO Q8H PRN (Reason: nausea and vomiting) Qty: 10 0RF Continued lisinopril 20 mg tablet 20 mg PO DAILY Patient Comments: TAKE 1 TABLET BY MOUTH ONCE DAILY IN AM Discharge Orders: Discharge Order (Routine); Ordered 01/08/25 Ordered By: Lesvia Fitch Activity: increase activity as tolerated Diet: other Diet Detail: small frequent meals and avoid greasy food gallbladder diet plan given to patient by nurse Interventions: Discharge Assessment Last Done: 01/08/25 10:25 MED/SURG & ICU Observation Charge Sheet Last Done: 01/08/25 10:27 Patient Instructions: Gallstones (DC) Activity Restrictions/Additional Instructions: small frequent meals and avoid greasy food gallbladder diet plan given to patient by nurse increase water in her diet Surgeon in [place] office contacted and [facility] for self pay obtained and given to the patient By in UR needs a follow up appointment with the surgeon as soon as available follow up PCP in 1 week If pain or fever recurs patient needs to go to an ER with a Surgeon available in case of gallbladder rupture Forms: Portal/Health Info Access Inst Follow-Ups: Miranda Modi [Primary Care Provider] - Discharge Date/Time: 01/08/25 10:27
== END 2025-01-08 10:27 | disposition home or self-care (01) ==
LOC: MS 22:13 → ED 22:13 → MS 01-07 03:00
PROVIDERS: ADMIT Nurse Practitioner Family; ATTEND Family Medicine
DX: Z87.19 Personal history of other diseases of the digestive system; I10 Essential (primary) hypertension; Z87.440 Personal history of urinary (tract) infections; Z79.899 Other long term (current) drug therapy; K80.00 Calculus of gallbladder with acute cholecystitis without obstruction; F41.9 Anxiety disorder, unspecified; E88.09 Other disorders of plasma-protein metabolism, not elsewhere classified; R11.2 Nausea with vomiting, unspecified; K76.0 Fatty (change of) liver, not elsewhere classified; Z23 Encounter for immunization; E83.51 Hypocalcemia; E87.1 Hypo-osmolality and hyponatremia